=== PATIENT | female | born 1960 | race Caucasian/White ===

== ENCOUNTER 2017-05-09 21:23 | Inpatient (IN) | payer OTHER ==
[~2017-05-09] VITALS: Ht 160 cm; Wt 56.9 kg
[2017-05-10 03:25] VITALS: BP 164/82; PULSE 66; RESP 18; TEMP 98.1; O2SAT 99
[2017-05-10] MEDS ORDERED: ACETAMINOPHEN 325 MG TAB PO PRN ×2 (03:30→08:00)
[2017-05-10] MEDS ORDERED: MAGNESIUM HYDROXIDE SUSP 30 ML CUP PO PRN ×2 (03:30→08:00)
[2017-05-10] MEDS ORDERED: ALUMINUM/MAGNESIUM/SIMETH 30 ML CUP PO PRN ×2 (03:30→08:00)
[2017-05-10] MEDS ORDERED: hydrOXYzine HCL 50 MG TAB PO PRN ×2 (03:30→08:00)
[2017-05-10] MEDS ORDERED: diphenhydrAMINE HCL 50 MG CAP PO PRN (08:00)
--- NOTE | 2017-05-10 08:17 | HHI.HP ---
Provisional Diagnosis Admission Date May 09, 2017 at 21:23 [place] I. 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 Express and informed consent means consent voluntarily given in writing, by a competent person, after sufficient explanation and disclosure of the subject matter involved to enable the person to make a knowing and willful decision without any element of force, fraud, deceit, duress, or other form of constraint or coercion. This person is 18 years of age or older, is not now known to be incompetent to consent to treatment with a guardian advocate, and does not have a health care surrogate or proxy currently making medical treatment decisions. I have found this person to be one of the following: [] Competent to provide express and informed consent, as defined above, for voluntary admission to this facility and is competent to provide express and informed consent for treatment. He/she has the consistent capacity to make well reasoned, willful, and knowing decisions concerning his or her medical or mental health treatment. The person fully and consistently understands the purpose of the admission for examination/placement and is fully capable of personally exercising all rights assured under [place] [] Incompetent to provide express and informed consent to voluntary admission, and this is incompetent to provide express and informed consent to treatment. The person must be transferred to involuntary status and a petition for a guardian advocate filed with the Circuit Court. xxdx[] Refusing to provide express and informed consent to voluntary admission but is competent to provide express and informed consent for treatment. The person must be discharged or transferred to involuntary status. Form shall be completed within 24 hours of a person's arrival at the receiving facility and filed in the clinical record of each person: 1. Admitted on a voluntary basis 2. Permitted to provide express and informed consent to his/her own treatment 3. Allowed to transfer from involuntary to voluntary status 4. Prior to permitting a person to consent to his or her own treatment after having been previously found incompetent to consent to treatment. History of Present Illness Capacity: Lacks Capacity (patient lacks capacity to sign for admission, patient has capacity to sign for medication) HPI Patient is a 56-year-old female who comes to the emergency department [facility] with complaints of suicidality. Patient was Jasmine acted there by a doctor Gerson dated 05/09/17 at 1600 hrs. that document reviewed and agreed with stating that patient stated "I want to " "I thought about cutting my wrists" "I feel depressed and anxious" this history of overdosing 20 years ago "just wanted to feel better". Patient seen screened and that ED urine toxicology negative blood alcohol level negative. Patient transferred here under the Jasmine act. At the present time patient laying quietly in her room on 2600 nurse Angela present throughout session. 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 That she lives with the of 30+ years and 2 single adult daughters. One daughter is disabled due to his severe diabetes. Patient states a history of depression going back many years. That has increased in its intensity over the past 4-5 weeks. She relates this to increased stress with work with financial issues and the strain of helping to take care of her disabled adult daughter. Patient states she has had sad mood, with multiple crying spells, she has both initial and mid insomnia, early a.m. awakening, marked a.m. anergy, decrease appetite with significant weight loss. Marked anhedonia. Decreased concentration and attention. Decreased coping skills with increased irritability. There is a hopelessness with this also. She denies any alcohol or drug use with this. She denies any voices or visions with this. She acknowledges suicidality. She said thoughts of wanting to hang herself. And as mentioned above wanting to cut her wrists. She has serious suicide attempt about 20 years ago and the [place]. She does deny any significant mood swings It appears she was hospitalized at that time also. Has been on Celexa somewhat intermittently more recently. She is not seeing a psychiatrist at the present time. She denies any physical or sexual abuse, denies any mental health or addiction issues with her family of origin. Patient states she does have some college education. She denies any significant medical problems at this time. Though blood pressure is somewhat elevated at [facility] of is somewhat better here. At the present time patient meets criteria for involuntary psychiatric hospitalization under the Jasmine act. I will do first opinion requests second opinion. They feel she does have capacity to make decisions concerning her medication. We did discuss medication I feel the patient's insomnia with loss and decreased appetite Remeron might be a good choice for her she is willing to take that. Was started on 15 mg at at bedtime. Hopeless to be fairly short stay and we can return at her family referral for outpatient psychiatric care in her community Review of Systems Constitutional: DENIES: Diaphoretic episodes, Fatigue, Fever, Weight gain, Weight loss, Chills, Dizziness, Change in appetite, Night Sweats Endocrine: DENIES: Abnorml menstrual pattern, Heat/cold intolerance, Polydipsia , Polyuria, Polyphagia Eyes: DENIES: Blurred vision, Diplopia, Eye inflammation, Eye pain, Vision loss , Photosensitivity, Double Vision Ears, nose, mouth, throat: DENIES: Tinnitus, Hearing loss, Vertigo, Nasal discharge, Oral lesions, Throat pain, Hoarseness, Ear Pain, Running Nose, Epistaxis, Sinus Pain, Toothache, Odynophagia Respiratory: DENIES: Apneas, Cough, Snoring, Wheezing, Hemoptysis, Sputum production, Shortness of breath Cardiovascular: DENIES: Chest pain, Palpitations, Syncope, Dyspnea on Exertion , PND, Lower Extremity Edema, Orthopnea, Claudication Gastrointestinal: DENIES: Abdominal pain, Black stools, Bloody stools, Constipation, Diarrhea, Nausea, Vomiting, Difficulty Swallowing, Anorexia Genitourinary: DENIES: Abnormal vaginal bleeding, Dysmenorrhea, Dyspareunia, Sexual dysfunction, Urinary frequency, Urinary incontinence, Urgency, Hematuria , Dysuria, Nocturia, Vaginal discharge Musculoskeletal: DENIES: Joint pain, Muscle aches, Stiffness, Joint Swelling, Back pain, Neck pain Integumentary: DENIES: Abnormal pigmentation, Pruritus, Rash, Nail changes, Breast masses, Breast skin changes, Nipple discharge Hematologic/lymphatic: DENIES: Bruising, Lymphadenopathy Immunologic/allergic: DENIES: Eczema, Urticaria Neurologic: DENIES: Abnormal gait, Headache, Localized weakness, Paresthesias, Seizures, Speech Problems, Tremor, Poor Balance Psychiatric: COMPLAINS OF: Depression, Suicidal Ideation Past Psych History Psychological trauma history Denies history of physical or sexual abuse Violence risk - others (6 mos) Low Violence risk - self (6 mos) Moderate to high Substance Abuse History Drugs/Alcohol past 12 months Denies Past Family Social History Coded Allergies: No Known Allergies (Unverified , 05/10/17) Past Medical History Denies Current Medications Medications (Trade) Dose Ordered Sig/Jesús Route Start Time Stop Time Status Last Admin (Atarax) 50 mg Q6H PRN PO 05/10/17 03:30 (Tylenol) 650 mg Q4H PRN PO 05/10/17 03:30 (Milk Of Magnesia Liq) 30 ml DAILY PRN PO 05/10/17 03:30 (Mag-Al Plus Susp Liq) 30 ml Q6H PRN PO 05/10/17 03:30 (Habitrol 21 Mg Patch.24 Hr) 1 patch DAILY T-DERMAL 05/10/17 09:00 Miscellaneous Information 1 HS T-DERMAL 05/10/17 21:00 Family History No history mental illness or addictions Social History Patient was the and 2 adult daughters. Patient has an adult son who is living independently Patient's Strengths (min. 2) Patient verbal able access healthcare cooperative Physical Exam A seen screened in the ED at [facility] medically cleared patient laying quietly in her bed no acute distress, no respiratory distress patient moves all 4 extremities without difficulty with her no abnormal motor movements noted Vital Signs Vital Signs Date Time Temp Pulse Resp B/P Pulse Ox O2 Delivery O2 Flow Rate FiO2 05/10/17 03:25 98.1 66 18 164/82 99 Mental Status Examination Alert oriented female, clean and neat somewhat guarded in her responses but overall cooperative with fair eye contact though with a sad face Appearance Clean and neat Speech: Unremarkable (moderate accent) Orientation: x3 Memory: Unremarkable Thought Process: Logical Thought Content: Unremarkable Language Fair Albanian and Icelandic accent Fund of Knowledge Fair Hallucination Type: None (denies) Attention and Concentration: Other (fair) Suicidal Ideation: Yes (also had plan to hang herself or cut her wrists) Previous Suicide Attempts: Yes Homicidal Ideation: No (denies) Previous Homicide Attempts: No (denies) Insight: Poor Judgment: Poor Affect: Other (decreased range and intensity) Mood: Sad Motor Activity: Normal gait Assessment & Plan Problem List: (1) Severe recurrent major depression without psychotic features ICD Code: F33.2 Assessment & Plan Estimated LOS: 3-5 days this time patient meets criteria for involuntary psychiatric hospitalization I will do first opinion request second opinion. I feel she has capacity to sign for medicine we'll start her on Remeron 15 mg at at bedtime. Hopeless be short stay and her temperature family with referral for him psychiatric care the community Discharge Planning To be determined Request HC Surrog/Guard Advoc?: No Donte Chao MD May 10, 2017 08:17
[2017-05-10 08:38] LABS: ANION GAP 9 MEQ/L (5-15); BICARBONATE 27.6 MEQ/L (21.0-32.0); BLOOD UREA NITROGEN 14 MG/DL (7-18); CHLORIDE 104 MEQ/L (98-107); GLOMERULAR FILTRATION RATE 96 ML/MIN (>89); POTASSIUM 3.4 MEQ/L (3.5-5.1); SODIUM (NA) 141 MEQ/L (136-145)
[2017-05-10 08:42] LABS: HDL CHOLESTEROL 104.5 MG/DL (40.0-60.0); LDL CHOLESTEROL 175 MG/DL (0-99)
[2017-05-10] MEDS: NICOTINE 21 MG/24 HR PATCH T-DERMAL SCH (09:00)
[2017-05-10 12:40] LABS: HEMOGLOBIN A1b 0.7 %; HEMOGLOBIN Ao 85.5 %; HEMOGLOBIN LA1C 1.9 %; HEMOGLOBIN P3 3.6 %
[2017-05-10 18:11] VITALS: BP 119/67; PULSE 75; RESP 18; TEMP 98.7; O2SAT 96
[2017-05-10 18:12] VITALS: BP 119/67; PULSE 75; RESP 18; TEMP 98.7; O2SAT 96
[2017-05-10] MEDS: REMOVE OLD NICOTINE PATCH T-DERMAL SCH (21:00)
[2017-05-10] MEDS: MIRTAZAPINE 15 MG TAB PO SCH (21:43)
[2017-05-11 06:20] VITALS: BP 99/61; PULSE 56; RESP 17; TEMP 98.9; O2SAT 97
[2017-05-11] MEDS: NICOTINE 21 MG/24 HR PATCH T-DERMAL SCH (09:00)
--- NOTE | 2017-05-11 15:29 | HHI.PYPN ---
Subjective Remarks This is a second opinion. Admission note was reviewed, and case discussed with nursing. Patient is pleasant and cooperative with exam. Mood is depressed discharge constricted affect. Patient describes depression over the past couple of months with suicidal ideation. Stressors include her job [employer]. Patient says she no longer has suicidal ideation. She denies any plan or intent of hurting herself here. Is compliant with her medications and tolerating them well. Reports good sleep with Remeron Objective Alert: Yes [place]: Person, Place, Date, Situation Mood: Depressed Affect: Restricted Memory Intact: Immediate (intact) Hallucinations: Auditory (denies) Delusions: No Delusion Type: Other (not elicited) Suicidal: Ideation (denies) Homicidal: Ideation (denies) Insight/Judgment Fair Vitals/IOs Vital Signs Date Time Temp Pulse Resp B/P Pulse Ox O2 Delivery O2 Flow Rate FiO2 05/11/17 06:20 98.9 56 17 99/61 97 Intake and Output 05/10/17 05/10/17 05/11/17 08:00 16:00 00:00 Intake Total 120 ml Balance 120 ml Assessment & Plan Problem List: (1) Severe recurrent major depression without psychotic features ICD Code: F33.2 Assessment & Plan I agree with first opinion to continue petition. Criteria include suicidal ideation with plan before admission and depression Justification for Cont. Inpt. Patient will decompensate in a less restrictive setting Request HC Surrog/Guard Advoc?: No Torsten Palacios DO May 11, 2017 15:29
[2017-05-11 18:10] VITALS: BP 123/72; PULSE 72; RESP 18; TEMP 98.7; O2SAT 97
[2017-05-11] MEDS: MIRTAZAPINE 15 MG TAB PO SCH (20:41)
[2017-05-11] MEDS: REMOVE OLD NICOTINE PATCH T-DERMAL SCH (20:42)
[2017-05-12 06:14] VITALS: BP 105/62; PULSE 60; RESP 16; TEMP 98.9; O2SAT 96
[2017-05-12] MEDS: NICOTINE 21 MG/24 HR PATCH T-DERMAL SCH (08:57)
[2017-05-12] MEDS ORDERED: MIRTA15 PO (12:19)
--- NOTE | 2017-05-12 12:23 | HHI.DS ---
Psychiatry Discharge Summary Inpatient Psychiatric care?: Yes Advance Directive: No Reason Not Provided: PT.DOESN'T WANT Mental Health AdvanceDirective: No Health Care Proxy: No Admission Admission Date May 09, 2017 at 21:23 Admission Diagnosis: (1) Severe recurrent major depression without psychotic features ICD Code: F33.2 Brief History Patient is a 56-year-old female who comes to the emergency department [facility] with complaints of suicidality. Patient was Jasmine acted there by a doctor Gerson dated 05/09/17 at 1600 hrs. that document reviewed and agreed with stating that patient stated "I want to " "I thought about cutting my wrists" "I feel depressed and anxious" this history of overdosing 20 years ago "just wanted to feel better". Patient seen screened and that ED urine toxicology negative blood alcohol level negative. Patient transferred here under the Jasmine act. At the present time patient laying quietly in her room on 2600 nurse Angela present throughout session. 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 One daughter is disabled due to his severe diabetes. Patient states a history of depression going back many years. That has increased in its intensity over the past 4-5 weeks. She relates this to increased stress with work with financial issues and the strain of helping to take care of her disabled adult daughter. Patient states she has had sad mood, with multiple crying spells, she has both initial and mid insomnia, early a.m. awakening, marked a.m. anergy, decrease appetite with significant weight loss. Marked anhedonia. Decreased concentration and attention. Decreased coping skills with increased irritability. There is a hopelessness with this also. She denies any alcohol or drug use with this. She denies any voices or visions with this. She acknowledges suicidality. She said thoughts of wanting to hang herself. And as mentioned above wanting to cut her wrists. She has serious suicide attempt about 20 years ago and the [place]. She does deny any significant mood swings It appears she was hospitalized at that time also. Has been on Celexa somewhat intermittently more recently. She is not seeing a psychiatrist at the present time. She denies any physical or sexual abuse, denies any mental health or addiction issues with her family of origin. Patient states she does have some college education. She denies any significant medical problems at this time. Though blood pressure is somewhat elevated at [facility] of is somewhat better here. At the present time patient meets criteria for involuntary psychiatric hospitalization under the Jasmine act. I will do first opinion requests second opinion. They feel she does have capacity to make decisions concerning her medication. We did discuss medication I feel the patient's insomnia with loss and decreased appetite Remeron might be a good choice for her she is willing to take that. Was started on 15 mg at at bedtime. Hopeless to be fairly short stay and we can return at her family referral for outpatient psychiatric care in her community Tobacco Use In Past 30 Days: No Tobacco Past 30 Days Alcohol Use: Never Hospital Course Patient show compliance with medication from admission, did sleep all the past 2 nights. Did have good conversations with family. Patient seen by me today with nurse Almas. Patient calm cooperative pleasant with good eye contact and occasional small smile. She continues to denies suicidality homicidality voices or visions. She does wish to go home to be with her family. At this time patient will the meets criteria for involuntary inpatient psychiatric hospitalization will discharge patient to herself Rx Remeron 1 month follow-up either [facility] or [facility]. Results Blood Pressure 105 / 62 Vital Signs Date Time Temp Pulse Resp B/P Pulse Ox O2 Delivery O2 Flow Rate FiO2 05/12/17 06:14 98.9 60 16 105/62 96 Laboratory Tests Test 05/10/17 08:02 Potassium Level 3.4 MEQ/L (3.5-5.1) Cholesterol Level 293 MG/DL (120-200) LDL Cholesterol 175 MG/DL (0-99) HDL Cholesterol 104.5 MG/DL (40.0-60.0) Laboratory Results Test 05/10/17 08:02 Hemoglobin A1c 5.9 % (4.3-6.0) Triglycerides Level 66 MG/DL (42-150) Cholesterol Level 293 MG/DL (120-200) LDL Cholesterol 175 MG/DL (0-99) HDL Cholesterol 104.5 MG/DL (40.0-60.0) Summary of Procedures None done Pending results at discharge: No Medications # of Antipsychotic meds at D/C: 0 Approp Antipsych med options 1 - Minimum of three failed multiple trials of monotherapy. 2 - Documented plan to taper to monotherapy due to previous use of multiple meds OR cross-taper in progress at D/C. 3 - Documentation of augmentation of Clozapine. 4 - Justification other than those listed in allowable values 1-3, document here : Discharge Discharge Date: May 12, 2017 Discharge Diagnosis: (1) Severe recurrent major depression without psychotic features Diagnosis: Principal ICD Code: F33.2 Mental Status Exam at Disch Alert oriented female calm cooperative. She has normal active. Mood is euthymic with slight decrease range intensity or affect. Speech rate and rhythm are within normal limits though no formal thought disorders. No auditory or visual hallucinations. No delusions. Insight and judgment is poor to fair cognition grossly intact Pt Condition on Discharge: Stable Discharge Disposition: Discharge Home Discharge Instructions Diet Instructions: As Tolerated, No Restrictions Activities you can perform: Regular-No Restrictions Scheduled Appointment: Anmol Cheney (tristen) Discharge Time > 30 minutes Discharge/Advance Care Plan Health Problems: (1) Severe recurrent major depression without psychotic features Goals to promote your health * To prevent worsening of your condition and complications * To maintain your health at the optimal level Directions to meet your goals Take your medications as prescribed Follow your dietary instruction Follow activity as directed Keep your appointments as scheduled Take your immunizations and boosters as scheduled If your symptoms worsen call your PCP, if no PCP go to Urgent Care Center or Emergency Room For 23/06 questions related to your inpatient stay or results of tests pending at discharge, please contact Dr. Donte Chao at Smoking is Dangerous to Your Health. Avoid second hand smoking Donte Chao MD May 12, 2017 12:23
--- NOTE | 2017-05-12 14:18 | PD.TTN ---
Present for Treatment Team Treatment Team Staff: Provider, Psych Therapist, Clinical Specialist Patient Problems 1. Discharge planning 2. Medication compliance 3. Knowledge deficit 4. Lack of coping skills Progress Toward Goals Provider Input: Dr. Chao's treatment team met to discuss patient's discharge plan, treatment plan, and medication. Patient has been medication compliant. Patient presents cooperative, and calm denies suicidal and homicidal ideation Nurse Input: Patient's nurse Carolyn reported patient is doing better, felt she was hurt due to job, family stress. Patient is attending selective activities Psych Therapist Input: Patient is alert and oriented. Patient made good eye contact. Patient is pleasant, organized, cooperative, affect appropriate. Patient has been medication compliant, no behavioral problems. Patient presents with no delusional content, or to be internally stimulated. Patient denies suicidal and homicidal ideation Clinical Specialist Input: Karen Araujo [employer] states patient has been seclusive to room withdrawn, refuses to participate in the group activities. Nidhi Martinez [facility] May 12, 2017 14:18
== END 2017-05-12 16:15 | disposition home or self-care (01) | DRG 885 ==
LOC: H260 21:23
PROVIDERS: ADMIT Psychiatry & Neurology Psychiatry; ATTEND Psychiatry & Neurology Psychiatry
DX: F33.2 Major depressive disorder, recurrent severe without psychotic features (principal); R45.851 Suicidal ideations; G47.00 Insomnia, unspecified; Z59.9 Problem related to housing and economic circumstances, unspecified; Z91.5 Personal history of self-harm
CPT/HCPCS: 80048; 80061; 83036